=== PATIENT | female | born 1935 ===

== ENCOUNTER → 2017-10-22 | Outpatient (CLI) | payer OTHER ==
[~2017-10-22] MED LIST: CALCTAB5 PO; FERR325T51 PO; FOLI1TAB8 PO; FURO20TA PO; IBUP-1459 PO
--- NOTE | 2017-10-22 13:06 | DIAGNOSTIC IMAGING REPORT ---
(CHEST) THORAX WITHOUT CLINICAL HISTORY: NON SMALL CELL LUNG CA COMPARISON STUDY: No previous studies for comparison. CT DOSE: 734.35 mGy.cm TECHNIQUE: CT of the thorax was performed from the thoracic inlet to the lung bases. Images are reviewed in the axial, sagittal, and coronal planes. IV contrast was not administered for this examination. A dose lowering technique was utilized adhering to the principles of ALARA. FINDINGS: Thyroid: Imaged portions of the thyroid gland are normal in appearance. Thoracic aorta: The thoracic aorta is normal in course and caliber, noting standard 3 vessel arch anatomy. Heart: The heart is normal in size. There are mild coronary artery calcifications. Lungs and pleural spaces: There are no pleural effusions. There is no focal pulmonary consolidation. There is respiratory motion artifact. Mediastinum: There is no pathologic adenopathy. Ruth: There is no pathologic adenopathy given the limitations of a noncontrast study Axilla: There is no pathologic adenopathy Upper abdomen: The liver has a cirrhotic morphology. Skeletal structures: There are no lytic or blastic osseous lesions. IMPRESSION: 1. No pathologic adenopathy on this noncontrast study 2. No suspicious pulmonary masses 3. If prior outside studies become available documenting the patient's reported lung carcinoma, then an addendum can be issued. Electronically signed by: Werner Lomas M.D. 10/22/2017 1:05 PM Dictated Date/Time: 10/22/2017 12:56 PM
== END | disposition home or self-care (01) ==
LOC: C.CTS 12:41
PROVIDERS: ATTEND Internal Medicine Hematology & Oncology
DX: C34.90 Malignant neoplasm of unspecified part of unspecified bronchus or lung (principal)